=== PATIENT | male | born 1975 ===

== ENCOUNTER 2022-09-15 23:10 | Emergency (ER) | payer OTHER, SELFPAY ==
[2022-09-15 23:32] VITALS: BP 152/106; PULSE 90; RESP 18; TEMP 37.1; O2SAT 97; BMI 34.0
--- NOTE | 2022-09-16 00:28 | W.ED.SKABFB ---
HPI - Skin/Abscess/Foreign Bdy General: Chief complaint: Skin/Abscess/Foreign Body Stated complaint: Right arm sore, swelling Time Seen by Provider: 09/16/22 00:19 Source: patient Mode of arrival: ambulatory Limitations: no limitations History of Present Illness: 47-year-old male states he has noticed some erythema and has had some pain to his left forearm over the last day. He does have an area of redness is warm to touch she denies any fever he rates his pain a 2 out of 10 he has had no drainage no signs of abscess. He denies any worsening improving factors. Associated symptoms: Deny chills, fever(s), nausea or vomiting Review of Systems Const: Denies: fever(s), chills, body aches or change in appetite Eyes: Denies: blurry vision or eye discomfort ENMT: Denies: throat pain or dental pain Card: Denies: chest pain Resp: Denies: dyspnea GI: Denies: abdominal pain, nausea, vomiting or diarrhea : Denies: dysuria Musc: Denies: neck pain or back pain Skin/Breast: Reports: erythema Neuro: Denies: headache(s) Psych: Denies: depression Refugio/Lymph: Denies: easy bruising All/Imm: Denies: urticaria PFSH ED PFSH: Medical History (Updated 09/16/22 @ 01:07 by Adriel Barber MD) No pertinent past medical history Social History (Updated 09/16/22 @ 01:07 by Adriel Barber MD) Substance/Drug Use: never Physical Exam Const: COMMON NORMALS: no acute distress, average body habitus and patient oriented x3 HENMT: COMMON NORMALS: atraumatic HEAD & SCALP: atraumatic Eye: COMMON NORMALS: conjunctivae normal CONJUNCTIVA: Yes conjunctivae normal Neck/C-Spine: COMMON NORMALS: supple Chest: COMMONS NORMALS: normal inspection of the chest Resp: COMMON NORMALS: normal respiratory effort Cardio: COMMON NORMALS: regular rate RATE: regular rate GI: INSPECTION: Yes normal to inspection Extremity: NARRATIVE EXTREMITY EXAM: Area of cellulitis left forearm roughly 2 cm in diameter Neuro: COMMON NORMALS: patient oriented x3 Psych: COMMON NORMALS: mental status grossly normal Skin: COMMON NORMALS: negative for no rashes or lesions noted GENERAL SKIN EXAM: rashes and/or lesions noted Course Vital Signs: Vital signs: Vital Signs Temperature 98.8 F 09/15/22 23:32 Pulse Rate 83 09/16/22 00:32 Respiratory Rate 14 09/16/22 00:32 Blood Pressure 145/101 09/16/22 00:32 Pulse Oximetry 97 09/16/22 00:32 MDM - Skin/Abscess/Foreign Bdy Medicial Decision Making Patient presents here with cellulitis to his left forearm he has no abscess we will start him on clindamycin he is stable for discharge he has no signs of necrotizing fasciitis he is to return if worsening. Discharge Plan Discharge Patient Disposition: Home Clinical Impression: Cellulitis Condition: Stable Prescriptions: New clindamycin HCl 300 mg capsule 300 mg PO Q6H 7 Days Qty: 28 0RF Discharge Orders: Discharge ED (Routine); Ordered 09/16/22 Ordered By: Adriel Barber Discharge Diet: Advance as tolerated Discharge Activity: Resume usual activity Patient Instructions: Cellulitis (ED) Coding Level of Care Code ED Workforce Management Consultant for Edi Ortiz
[2022-09-16 00:32] VITALS: BP 145/101; PULSE 83; RESP 14; O2SAT 97
[2022-09-16] MEDS: clindamycin 150 mg Capsule 300 MG PO (00:36)
== END 2022-09-16 00:44 | disposition home or self-care (01) ==
PROVIDERS: Emergency Provider Emergency Medicine
DX: L03.114 Cellulitis of left upper limb (principal)
CPT/HCPCS: 99283

== ENCOUNTER → 2023-04-30 10:47 | Outpatient (BNVA) | payer OTHER, SELFPAY | PROVIDERS: Visit Provider Nurse Practitioner Family | DX: M25.561 Pain in right knee (principal) | CPT/HCPCS: 73562; 84550; 85025; 85651; 86140 ==